=== PATIENT | female | born 1995 | race Caucasian/White ===

== ENCOUNTER 2018-09-09 10:50 | Emergency (ER) | payer OTHER ==
[2018-09-09 10:56] VITALS: BMI 21.9
--- NOTE | 2018-09-09 11:46 | PDOC ---
History of Present Illness - General Chief Complaint: Vaginal Bleeding Stated Complaint: VAGINAL BLEEDING/14 WKS Time Seen by Provider: 09/09/18 11:20 History Source: Patient Exam Limitations: Clinical Condition - History of Present Illness Initial Comments: 09/09/18 11:39 Patient with no significant past medical history and 14 weeks with LMP of May 29 present with complaint of 2 day history of vaginal bleeding soaking 1 pad today. Patient reported vaginal bleeding has lightened up today and only had vaginal spotting today. Denies dizziness, chest pain, shortness of breath, weakness, fever or chills. Denies vomiting. Denies any other symptoms Timing/Duration: other (2 days) Past History - Past Medical History Allergies/Adverse Reactions: Allergies Allergy/AdvReac Type Severity Reaction Status Date / Time aspirin Allergy Verified 09/09/18 11:41 Home Medications: Ambulatory Orders No122/Iron/Folic Acid [ Multi Tablet] 1 each PO DAILY 09/09/18 COPD: No - Immunization History Immunization Up to Date: Yes - Suicide/Smoking/Psychosocial Hx Smoking History: Never smoked Hx Alcohol Use: No Drug/Substance Use Hx: No Review of Systems - Review of Systems Able to Perform ROS?: Yes Is the patient limited Frisian proficient: No Constitutional: No: Malaise, Weakness HEENTM: No: Blurred Vision, Double Vision Respiratory: No: Symptoms reported Cardiac (ROS): No: Symptoms Reported ABD/GI: No: Diarrhea, Nausea, Vomiting, Abdominal cramping : Yes: See HPI, Other (vaginal spotting). No: Dysuria, Discharge, Frequency, Urgency Neurological: No: Weakness All Other Systems: Reviewed and Negative *Physical Exam - Vital Signs Last Vital Signs Temp Pulse Resp BP Pulse Ox 98.2 F 130 H 18 135/73 100 09/09/18 10:54 09/09/18 10:54 09/09/18 10:54 09/09/18 10:54 09/09/18 10:54 - Physical Exam Comments: 09/09/18 13:03 GENERAL: Well developed, well nourished. Awake and alert. No acute distress. NECK: Supple. Full ROM. CARDIOVASCULAR: Regular rate and rhythm. No murmurs, rubs, or gallops. Distal pulses are 2+ and symmetric. PULMONARY: No evidence of respiratory distress. Lungs clear to auscultation bilaterally. No wheezing, rales or rhonchi. ABDOMINAL: Soft. Non-tender. Non-distended. No rebound or guarding. No organomegaly. Normoactive bowel sounds. : scant amount of blood in vaginal vault. no active vaginal bleeding. no visible lesions or discharge in vaginal vault. cervical os closed. no CMT SKIN: Warm and dry. Normal capillary refill. No rashes. No jaundice. NEUROLOGICAL: Alert, awake, appropriate. Gait is normal without ataxia. PSYCHIATRIC: Cooperative. Good eye contact. Appropriate mood General Appearance: Yes: Nourished, Appropriately Dressed. No: Apparent Distress Moderate Sedation - Procedure Monitoring Vital Signs: Procedure Monitoring Vital Signs Temperature 98.2 F 09/09/18 10:54 Pulse Rate 130 H 09/09/18 10:54 Respiratory Rate 18 09/09/18 10:54 Blood Pressure 135/73 09/09/18 10:54 O2 Sat by Pulse Oximetry (%) 100 09/09/18 10:54 ED Treatment Course - LABORATORY CBC & Chemistry Diagram: 09/09/18 11:50 09/09/18 11:50 - RADIOLOGY Radiology Studies Ordered: Category Date Time Status TRANSVAGINAL US PREG [US] Stat Ultrasound 09/09/18 11:37 Ordered Medical Decision Making - Medical Decision Making 09/09/18 13:05 Patient with no significant past medical history and 14 weeks with LMP of May 29 present with complaint of 2 day history of vaginal bleeding soaking 1 pad today. Patient reported vaginal bleeding has lightened up today and only had vaginal spotting today. Denies dizziness, chest pain, shortness of breath, weakness, fever or chills. Exam significant for scant amount of blood in vaginal vault. no active vaginal bleeding. no visible lesions or discharge in vaginal vault. cervical os closed. no CMT. Lungs clear to auscultation bilateral. Normal cardiac exam. CBC, CMP, beta hcg, UA labs ordered. Type and screen lab ordered. Pelvic ultrasound ordered. Symptoms likely threatened . Patient be treated conservatively if normal labs and ultrasound. 09/09/18 13:26 CBC and chemistry lab showed no acute pathology. Beta hcg [id number]. Type and screen shows blood type of A+. Pelvic ultrasound shows live IUP consistent with and 15.1 weeks GA with heart rate of 144. Patient is stable for discharge with OB follow-up and strict instructions. 09/09/18 13:31 *DC/Admit/Observation/Transfer Diagnosis at time of Disposition: Threatened - Discharge Dispostion Disposition: HOME Condition at time of disposition: Stable Decision to Admit order: No - Referrals Referrals: Nolvia Irby MD [Primary Care Provider] - - Patient Instructions Printed Discharge Instructions: DI for Threatened Additional Instructions: Your lab work and ultrasound was normal. Follow-up with your FINANCIAL ASSISTANCE SPECIALIST in 2 days for repeat blood work and reassessment. Come back to emergency room if worsening bleeding or severe abdominal pains - Post Discharge Activity
[2018-09-09 12:01] LABS: BASO % 0.5 % (0-2.0); EOS % 0.5 % (0-4.5); HEMOGLOBIN 12.4 GM/dL (10.7-15.3); MCH 33.2 pg (25.7-33.7); MCHC 35.5 g/dl (32.0-36.0); MEAN CELL VOLUME 93.7 fl (80-96); MEAN PLT VOLUME 7.6 fl (7.5-11.1); MONO % 7.7 % (3.8-10.2); NEUT % 77.3 % (42.8-82.8); PLATELET COUNT 294 K/MM3 (134-434); RBC 3.74 M/mm3 (3.60-5.2); RDW 13.1 % (11.6-15.6); WHITE BLOOD COUNT 9.2 K/mm3 (4.0-10.0)
[2018-09-09 12:02] VITALS: TEMP 98.8
[2018-09-09 12:02] LABS: URINE APPEARANCE SLCLOUDY; URINE BILIRUBIN NEGATIVE (<2.0 mg/dL); URINE COLOR YELLOW; URINE GLUCOSE (UA) 1+ (NEGATIVE); URINE KETONE NEGATIVE (NEGATIVE); URINE LEUK ESTERASE TRACE (NEGATIVE); URINE NITRITE NEGATIVE (NEGATIVE); URINE PROTEIN NEGATIVE (NEGATIVE); URINE UROBILINOGEN NEGATIVE mg/dL (0.2-1.0)
[2018-09-09 12:06] LABS: EPI CELLS RARE /HPF (FEW); URINE MUCUS RARE
[2018-09-09 12:52] LABS: ALBUMIN 3.4 g/dl (3.4-5.0); ALK PHOS 35 U/L (45-117); ANION GAP 9 MMOL/L (8-16); BILIRUBIN,TOTAL 0.2 mg/dL (0.2-1); BLOOD UREA NITROGEN 9 mg/dL (7-18); CALCIUM 9.1 mg/dL (8.5-10.1); CHLORIDE 106 mmol/L (98-107); CO2 23 mmol/L (21-32); CREATININE 0.4 mg/dL (0.55-1.3); GLUCOSE,RANDOM 91 mg/dL (74-106); POTASSIUM 3.7 mmol/L (3.5-5.1); SGOT/AST 16 U/L (15-37); SGPT/ALT 33 U/L (13-61); SODIUM 138 mmol/L (136-145); TOT PROT 7.2 g/dl (6.4-8.2)
[2018-09-09 13:42] VITALS: BP 118/79; PULSE 92
== END 2018-09-09 13:48 | disposition home or self-care (01) ==
LOC: JER 10:50
DX: O26.892 Other specified pregnancy related conditions, second trimester (principal); O20.0 Threatened abortion; Z3A.15 15 weeks gestation of pregnancy
CPT/HCPCS: 36415; 76815-TC; 80053; 81003; 81015; 84702; 85025; 86850; 86900; 86901; 87086; 99282-25

== ENCOUNTER 2019-02-16 03:05 | Inpatient (IN) | payer OTHER ==
[2019-02-16] MEDS: ELECTROLYTE-148 SOLN 1,000 ML IV SCH ×2 (03:25→05:30)
[2019-02-16] MEDS ORDERED: OXYTOCIN 20 UNITS in 0.9% NS 20 UNIT/1,000 ML INFUS.BAG IV ONE (03:55)
[2019-02-16 04:00] LABS: BASO % 0.4 % (0-2.0); EOS % 0.9 % (0-4.5); HEMATOCRIT 41.1 % (32.4-45.2); HEMOGLOBIN 14.1 GM/dL (10.7-15.3); LYMPH % 11.7 % (8-40); MCH 32.5 pg (25.7-33.7); MCHC 34.2 g/dl (32.0-36.0); MEAN CELL VOLUME 94.9 fl (80-96); MEAN PLT VOLUME 8.7 fl (7.5-11.1); MONO % 4.4 % (3.8-10.2); NEUT % 82.6 % (42.8-82.8); PLATELET COUNT 272 K/MM3 (134-434); RBC 4.33 M/mm3 (3.60-5.2); RDW 14.3 % (11.6-15.6); WHITE BLOOD COUNT 11.6 K/mm3 (4.0-10.0)
--- NOTE | 2019-02-16 04:09 | HP ---
Past Medical History - Admission History of Present Illness: 23yo @ 37.4wks by LMP/sono here with contractions. No VB/LOF. 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: Alzheimer's, CVA, Dementia, Migraine, Multiple Sclerosis, Peripheral Neuropathy, Parkinson's, Seizure, Syncope, TIA, Vertigo, Other Cardiovascular: No: AFIB, Aneurysm, Aortic Insufficiency, Aortic Stenosis, CAD, CHF, Deep Vein Thrombosis, HTN, Hyperlipdemia, [place], Mitral Insufficiency, Mitral Stenosis, Murmur, Pulmonary Hypertension, Other Pulmonary: No: Asthma, Bronchitis, Cancer, COPD, O2 Dependent, Pneumonia, Previously Intubated, Pulmonary Embolus, Pulmonary Fibrosis, Sleep Apnea, Other Gastrointestinal: No: Ascites, Cancer, Constipation, Crohn's Disease, Diverticulitis, Diverticulosis, Esophageal Varices, Gastritis, GERD, GI Bleed, Hemorrhoids, Hiatal Hernia, Inflamatory Bowel Disease, Irritable Bowel Disease, Pancreatitis, Peptic Ulcer Disease, Ulcerative Colitis, Other Hepatobiliary: No: Cirrhosis, Cholelithiasis, Cholecystitis, Choledocholithiasis , Hepatitis A, Hepatitis B, Hepatitis C, Other Renal/: No: Renal Failure, Renal Inusuff, BPH, Cancer, Hematuria, Hemodialysis , Neurogenic Bladder, Renal Calculi, UTI, Other Reproductive: No: Ectopic , Endometriosis, Fibroids, PID, Polycystic Ovary Syndrome, Postmenopausal, Other ...: 1 ...Para: 0 Heme/Onc: Yes: Anemia Infectious Disease: No: AIDS, C-Diff, Herpes Zoster, HIV, MRSA, STD's, Tuberculosis, VREF, Other Psych: No: Addictions, Anxiety, Bipolar, Depression, Panic, Psychosis, Schizophrenia, Other Musculoskeletal: No: Bursitis, Chronic low back pain, Hemiparesis, Hemiplegia, Osteoarthritis, Paraplegia, Other Rheumatology: No: Fibromyalgia, Gout, Lupus, Rheumatoid Arthritis, Sarcoidosis, Vasculitis, Other ENT: No: Allergic Rhinitis, Sinusitis, Other Endocrine: No: Chele's Disease, Nic's Disease, Diabetes Insipidus, Diabetes Mellitus, Hyperparathyroidism, Hyperthyroidism, Hypothyroidism, Osteopenia, SIADH, Other - Past Surgical History Past Surgical History: Yes: None Hx Myomectomy: No Hx Transabdominal Cerclage: No - Smoking History Smoking history: Never smoked Have you smoked in the past 12 months: No - Alcohol/Substance Use Hx Alcohol Use: No History of Substance Use: reports: None - Social History Usual Living Arrangement: Yes: With Spouse, With Significant Other ADL: Independent History of Recent Travel: No Home Medications - Allergies Allergies/Adverse Reactions: Allergies Allergy/AdvReac Type Severity Reaction Status Date / Time shrimp Allergy Severe Swelling Verified 02/16/19 03:52 aspirin Allergy Intermediate Swelling Verified 02/16/19 03:51 - Home Medications Home Medications: Ambulatory Orders No122/Iron/Folic Acid [ Multi Tablet] 1 each PO DAILY 09/09/18 Review of Systems - Review of Systems Constitutional: denies: No Symptoms, Chills, Diaphoresis, Fever, Lethargy, Loss of Appetite, Malaise, Night Sweats, Unintentional Wgt. Loss, Weakness, Other Cardiovascular: denies: No Symptoms, Chest Pain, Edema, Palpitations, Shortness of Breath, Other Respiratory: denies: No Symptoms, Cough, Exercise Intolerance, Hemoptysis, Orthopnea, PND, Snoring, SOB, SOB on Exertion, Wheezing, Other Gastrointestinal: denies: No Symptoms, Abdominal Pain, Bloating, Constipation, Diarrhea, Dysphagia, Indigestion, Melena, Nausea, Rectal Bleeding, Vomiting, Vomiting Blood, Other Physical Exam - Maternity Constitutional: Yes: Well Nourished, No Distress, Calm Eyes: Yes: WNL, Conjunctiva Clear, EOM Intact HENT: Yes: WNL, Atraumatic, Normocephalic Neck: Yes: WNL, Supple, Trachea Midline Cardiovascular: Yes: WNL, Regular Rate and Rhythm Breast(s): Yes: WNL - Abdominal Exam/OB Number of Fetuses: Single Presentation: Vertex Contractions: Yes Regularity: Regular Intensity: Moderate Monitor Mode: External Category: I Accelerations: Non-Uniform Decelerations: None - Vaginal Exam/OB Vaginal Bleediing: Light Speculum Exam: No Dilatation (cm): 5 Effacement (%): 100 Amniotic Membrane Status: Ruptured Amniotic Fluid: Yes: Blood Stained Presentation: Vertex/Position - Physical Exam Edema: No - Labs Lab Results: CBC, BMP 02/16/19 03:45 Assessment/Plan 23yo @ 37.4wks here in active labor Admit to L&D Labs Epidural prn pain Cat I tracing AROM/Pitocin prn Anticipate CHAPIS Hurtado MD
[2019-02-16 04:14] LABS: INR 0.91 (0.83-1.09); PROTHROMBIN TIME (PATIENT) 10.7 SEC (9.7-13.0)
[2019-02-16 04:16] LABS: ACTIVATED PTT 24.1 SECONDS (25.2-36.5)
[2019-02-16 04:26] LABS: BLOOD UREA NITROGEN 12.2 mg/dL (7-18); CALCIUM 8.9 mg/dL (8.5-10.1); CREATININE 0.7 mg/dL (0.55-1.3); POTASSIUM 3.8 mmol/L (3.5-5.1)
[2019-02-16 04:31] VITALS: BMI 26.2
[2019-02-16] MEDS ORDERED: FENTANYL/BUPIVACAINE/NS/PF - PCEA - 50 ML DISP.SYRIN EP ONE ×2 (04:43→08:25)
[2019-02-16] MEDS ORDERED: NALOXONE HCL 0.4 MG/ML VIAL IVPUSH PRN (05:04)
[2019-02-16] MEDS ORDERED: LIDO 2%/EPI 1:200000 PRESRVFRE (20 ML SDVIAL) ONE ×2 (05:07→09:33)
[2019-02-16] MEDS ORDERED: BUPIVACAINE HCL/PF 0.25% (2.5MG/ML) 10 ML VIAL ONE ×2 (05:07→08:53)
[2019-02-16] MEDS ORDERED: FENTANYL/BUPIVACAINE/NS/PF - PCEA - 50 ML DISP.SYRIN EP SCH (05:15)
--- NOTE | 2019-02-16 05:43 | PN ---
Progress Note, Labor Vaginal Exam #1 Labor Exam Date: 02/16/19 Labor Exam Time: 05:42 Heart Rate (range): Cat I Dilatation: 7 Effacement (%): 100 Amniotic Membrane Status: Ruptured Presentation: Vertex/Position Station: 0 Remarks: Comfortable s/p epidural AROM, clears Cat I tracing Anticipate Wiley Hurtado MD
--- NOTE | 2019-02-16 07:53 | PN ---
Progress Note, Labor Vaginal Exam #2 Labor Exam Date: 02/16/19 Labor Exam Time: 07:52 Heart Rate (range): Cat I Dilatation: 7 Effacement (%): 100 Amniotic Membrane Status: Ruptured Presentation: Vertex/Position Station: +1 Remarks: Pt c/o increased pressure descent, but no improvement in dilation Re-examine in one hour, if unchanged -> pitocin/IUPC Wiley Hurtado MD
--- NOTE | 2019-02-16 09:41 | PN ---
Progress Note, Labor Vaginal Exam #3 Labor Exam Date: 02/16/19 Labor Exam Time: 09:40 Heart Rate (range): Cat I Dilatation: 9 Effacement (%): 100 Amniotic Membrane Status: Ruptured Presentation: Vertex/Position Station: +1 Remarks: Pt complaining of increased pain and pressure Now 9cm Epidural top off Wiley Hurtado MD
[2019-02-16] MEDS ORDERED: BUPIVACAINE HCL/PF 0.5% (5MG/ML) 10 ML VIAL ONE (09:46)
[2019-02-16] MEDS ORDERED: TERBUTALINE SULFATE 1 MG/1 ML VIAL SQ ONE ×2 (09:55→10:07)
--- NOTE | 2019-02-16 10:06 | PN ---
Progress Note, Labor Vaginal Exam #4 Labor Exam Date: 02/16/19 Labor Exam Time: 10:00 Heart Rate (range): Cat II Dilatation: AL Effacement (%): 100 Amniotic Membrane Status: Ruptured Presentation: Vertex/Position Station: +2 Remarks: Called to room. Patient c/o increased pain and pressure, has started to push on her own accord, without breaks between contractions. Advised to stop. FHT down x 5 minutes, with majority of time with loss of contact, 5th minute FHT 90's with gradual recovery to 120's. During this time, pt advised to stop pushing, which she did not do. Repositioned and oxygen placed. Dose of terbutaline given. Patient stopped pushing once rotated to the side. Now FHT 130's, moderate variability Will allow baby to recover, and start pushing in 10-15 minutes Wiley Hurtado MD
--- NOTE | 2019-02-16 11:13 | PN ---
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 Epidural anesthesia. No nuchal. Spontaneous delivery of anterior shoulder. placed on maternal abdomen. Cord clamped and cut. Weight pending. Apgars 9/9. Spontaneous delivery of intact placenta with 3VC. Fundus firm. Perineum inspected, only right mediolateral episiotomy repaired with 2-0 chromic. Hemostasis achieved. Two skin tags noted on each side of the cheeks near the earlob/tragus. Mother and baby doing well. Ivana Hurtado MD
[2019-02-16] MEDS ORDERED: WITCH HAZEL 50% (TUCKS) 40 PAD/JAR PAD TP PRN (11:14)
[2019-02-16] MEDS ORDERED: ACETAMINOPHEN 325 MG TABLET (FP) PO PRN (11:14)
[2019-02-16] MEDS ORDERED: IBUPROFEN 600 MG TABLET (FP) PO PRN (11:14)
[2019-02-16] MEDS ORDERED: METHYLERGONOVINE MALEATE 0.2 MG/1 ML AMP IM PRN (11:14)
[2019-02-16] MEDS ORDERED: BENZOCAINE 28 GM HEMORRHOIDAL OINTMENT TP PRN (11:14)
[2019-02-16] MEDS ORDERED: BENZOCAINE 20% 57 GM BOTTLE TP PRN (11:14)
[2019-02-16] MEDS ORDERED: BISACODYL 10 MG SUPP.RECT RC PRN (11:14)
[2019-02-16] MEDS ORDERED: OXYTOCIN 20 UNITS in 0.9% NS 20 UNIT/1,000 ML INFUS.BAG IV SCH (11:15)
[2019-02-17 07:39] LABS: BASO % 0.2 % (0-2.0); EOS % 0.8 % (0-4.5); HEMATOCRIT 29.1 % (32.4-45.2); LYMPH % 13.5 % (8-40); MCH 32.8 pg (25.7-33.7); MCHC 34.3 g/dl (32.0-36.0); MEAN CELL VOLUME 95.8 fl (80-96); MEAN PLT VOLUME 8.5 fl (7.5-11.1); MONO % 7.7 % (3.8-10.2); NEUT % 77.8 % (42.8-82.8); RBC 3.04 M/mm3 (3.60-5.2); RDW 14.1 % (11.6-15.6); WHITE BLOOD COUNT 11.2 K/mm3 (4.0-10.0)
--- NOTE | 2019-02-17 08:59 | PN ---
Post Progress Note Post Day: 1 Type of Delivery: Vital Signs: Vital Signs Temperature 98.2 F 02/17/19 07:25 Pulse Rate 88 02/17/19 07:25 Respiratory Rate 20 02/17/19 07:25 Blood Pressure 118/70 02/17/19 07:25 O2 Sat by Pulse Oximetry (%) 100 02/16/19 09:45 Uterus: Yes: Fundus below umbilicus Abdomen/GI: Yes: Abdomen soft, Passing flatus, Tolerating PO Lochia: Yes: Rubra Lochia, amount: Small Extremities: Yes: Calves non-tender Perineum: Yes: Episiotomy Activity: Ambulating - Labs Labs: CBC WBC 11.6 K/mm3 (4.0-10.0) H 02/16/19 03:45 RBC 4.33 M/mm3 (3.60-5.2) 02/16/19 03:45 Hgb 14.1 GM/dL (10.7-15.3) 02/16/19 03:45 Hct 41.1 % (32.4-45.2) D 02/16/19 03:45 MCV 94.9 fl (80-96) 02/16/19 03:45 MCH 32.5 pg (25.7-33.7) 02/16/19 03:45 MCHC 34.2 g/dl (32.0-36.0) 02/16/19 03:45 RDW 14.3 % (11.6-15.6) 02/16/19 03:45 Plt Count 272 K/MM3 (134-434) 02/16/19 03:45 MPV 8.7 fl (7.5-11.1) D 02/16/19 03:45 Absolute Neuts (auto) 9.6 K/mm3 (1.5-8.0) H 02/16/19 03:45 Neutrophils % 82.6 % (42.8-82.8) 02/16/19 03:45 Lymphocytes % 11.7 % (8-40) 02/16/19 03:45 Monocytes % 4.4 % (3.8-10.2) 02/16/19 03:45 Eosinophils % 0.9 % (0-4.5) 02/16/19 03:45 Basophils % 0.4 % (0-2.0) 02/16/19 03:45 Nucleated RBC % 0 % (0-0) 02/16/19 03:45 Assessment/Plan 23yo s/p -Routine PP care -OOB, ambulate -Labs pending Anticipate d/c to home tomorrow Wiley Hurtado MD
[2019-02-17] MEDS: PRENATAL VITAMINS W/ FOLIC ACID TABLET (FP) PO SCH (09:12)
[2019-02-17 09:46] LABS: PLATELET COUNT 204 K/MM3 (134-434)
[2019-02-17] MEDS ORDERED: SENNOSIDES/DOCUSATE COMBO (SENNA PLUS) TABLET (UD) PO PRN (22:00)
[2019-02-18 08:01] VITALS: BP 102/67; PULSE 78; TEMP 98.4
[2019-02-18] MEDS: PRENATAL VITAMINS W/ FOLIC ACID TABLET (FP) PO SCH (09:17)
--- NOTE | 2019-02-18 10:36 | DS ---
Physical Examination Vital Signs: Vital Signs Temperature 98.4 F 02/18/19 07:40 Pulse Rate 78 02/18/19 07:40 Respiratory Rate 18 02/18/19 07:40 Blood Pressure 102/67 02/18/19 07:40 O2 Sat by Pulse Oximetry (%) 100 02/16/19 09:45 Constitutional: Yes: Well Nourished, No Distress, Calm Eyes: Yes: WNL, Conjunctiva Clear, EOM Intact HENT: Yes: WNL, Atraumatic, Normocephalic Neck: Yes: WNL, Supple, Trachea Midline Cardiovascular: Yes: WNL, Regular Rate and Rhythm Respiratory: Yes: WNL, Regular, CTA Bilaterally Gastrointestinal: Yes: WNL, Normal Bowel Sounds Musculoskeletal: Yes: WNL Extremities: Yes: WNL Edema: No Integumentary: Yes: WNL Neurological: Yes: WNL, Alert, Oriented ...Motor Strength: WNL Psychiatric: Yes: WNL Labs: CBC, BMP 02/17/19 06:22 02/16/19 03:45 Discharge Summary Reason For Visit: LABOR Procedures: Principal: Hospital Course: Patient presented in active labor She had an uncomplicated She met all milestones She was discharged home on PPD#2 Ivana Hurtado MD Condition: Stable - Instructions Diet, Activity, Other Instructions: Regular Diet Follow up in 4-6 weeks for your visit [facility]: [phone] If fever, pain, or heavy bleeding, call M.Sam Referrals: Liana Cunningham CNM [Certified Nurse Core Maker] - Disposition: HOME - Home Medications Comprehensive Discharge Medication List: Ambulatory Orders No122/Iron/Folic Acid [ Multi Tablet] 1 each PO DAILY 09/09/18
== END 2019-02-18 13:10 | disposition home or self-care (01) | DRG 560 ==
LOC: JLDR 03:05 → J3W 13:30
PROVIDERS: ADMIT Obstetrics & Gynecology; ATTEND Obstetrics & Gynecology
PROC: 0KQM0ZZ Repair Perineum Muscle, Open Approach (ICD-10-PCS; principal; 2019-02-16)
PROC: 10E0XZZ Delivery of Products of Conception, External Approach (ICD-10-PCS; 2019-02-16)
DX: O70.1 Second degree perineal laceration during delivery (principal); Z3A.37 37 weeks gestation of pregnancy; Z37.0 Single live birth
CPT/HCPCS: 36415; 59409; 80048; 85025; 85610; 85730; 86593; 86850; 86900; 86901